=== PATIENT | female | born 1990 | race Caucasian/White ===

== ENCOUNTER 2020-11-05 16:55 | Emergency (ER) | payer SELFPAY ==
[~2020-11-05] VITALS: Ht 167.6 cm; Wt 74.3 kg
[2020-11-05 16:58] VITALS: BP 112/73
--- NOTE | 2020-11-05 17:47 | NUR ---
PT AMBULATED BACK TO ROOM WITHOUT DIFFICULTY.
--- NOTE | 2020-11-05 17:49 | NUR ---
ERP AT NOW.
[2020-11-05 17:54] LABS: BASOPHILS % (AUTO) 1 % (0-1); EOSINOPHILS % (AUTO) 1 % (1-7); LYMPHOCYTES % (AUTO) 22 % (22-44); MEAN CORPUSCULAR HEMOGLOBIN 30.5 pg (27.0-34.8); MEAN CORPUSCULAR HGB CONC 33.3 g/dL (32.4-35.8); MEAN PLATELET VOLUME 8.1 fL (7.4-10.4); MONOCYTES % (AUTO) 7 % (2-9); NEUTROPHILS % (AUTO) 70 % (42-75); PLATELET COUNT 372 x10^3/uL (130-400); RED BLOOD COUNT 4.21 x10^6/uL (3.82-5.3); RED CELL DISTRIBUTION WIDTH 13.2 % (9.6-15.2)
--- NOTE | 2020-11-05 17:57 | NUR ---
POC RV'WD WITH PT. NO S/S OF DISTRESS, DENIES NEEDS. FRIEND AT BS.
[2020-11-05 17:58] LABS: MD NO
[2020-11-05 18:02] LABS: ALBUMIN 3.5 g/dL (3.4-5.0); ANION GAP 5 mmol/L (5-15); CALCIUM 8.3 mg/dL (8.5-10.1); CHLORIDE 107 mmol/L (98-107)
[2020-11-05 18:19] LABS: MICROSCOPIC INDICATED
[2020-11-05 18:20] LABS: ALANINE AMINOTRANSFERASE 16 U/L (12-78); ALKALINE PHOSPHATASE 58 U/L (45-117); BILIRUBIN,TOTAL 0.1 mg/dL (0.2-1.0); CREATININE 0.77 mg/dL (0.55-1.02); TOTAL PROTEIN 7.5 g/dL (6.4-8.2)
--- NOTE | 2020-11-05 18:25 | NUR ---
PT TO US VIA JOEL.
[2020-11-05] MEDS ORDERED: LORazepam 2 MG/ML, 1ML ONE (18:31)
[2020-11-05] MEDS ORDERED: LABETALOL 5MG/ML, 20ML ONE (18:31)
--- NOTE | 2020-11-05 19:59 | NUR ---
PT LEFT BEFORE RECEIVING DISCHARGE PAPERS. AMBULATED OUT OF ED WITH SIGNIFICANT OTHER AND FRIEND WITHOUT DIFFICULTY.
== END 2020-11-05 20:00 | disposition home or self-care (01) ==
LOC: ED 17:05
DX: O23.41 Unspecified infection of urinary tract in pregnancy, first trimester (principal); N83.292 Other ovarian cyst, left side; Z3A.01 Less than 8 weeks gestation of pregnancy; R82.71 Bacteriuria; F17.290 Nicotine dependence, other tobacco product, uncomplicated
CPT/HCPCS: 36415; 76801; 80053; 81001; 84702; 85025; 87086; 99284

== ENCOUNTER 2020-12-12 11:40 | Emergency (ER) | payer SELFPAY ==
[~2020-12-12] VITALS: Ht 167.6 cm; Wt 76.7 kg
[2020-12-12 11:43] VITALS: BP 113/55
--- NOTE | 2020-12-12 12:12 | NUR ---
BREAK RN: PT UPRIGHT ON GURNEY AWAKE & COMFORTABLE, RESPONDS APPROP TO STAFF, NAD, NO NEEDS AT THIS TIME, SO AT BS, CALL LIGHT WITHIN REACH.
--- NOTE | 2020-12-12 12:13 | NUR ---
BREAK RN: PT TO US
[2020-12-12 12:37] LABS: BASOPHILS % (AUTO) 1 % (0-1); EOSINOPHILS % (AUTO) 0 % (1-7); LYMPHOCYTES % (AUTO) 25 % (22-44); MEAN CORPUSCULAR HEMOGLOBIN 31.5 pg (27.0-34.8); MEAN CORPUSCULAR HGB CONC 34.5 g/dL (32.4-35.8); MEAN PLATELET VOLUME 8.8 fL (7.4-10.4); MONOCYTES % (AUTO) 7 % (2-9); NEUTROPHILS % (AUTO) 67 % (42-75); PLATELET COUNT 286 x10^3/uL (130-400); RED CELL DISTRIBUTION WIDTH 13.3 % (9.6-15.2)
[2020-12-12 12:43] LABS: ALBUMIN 3.3 g/dL (3.4-5.0); ANION GAP 9 mmol/L (5-15); CHLORIDE 109 mmol/L (98-107); CREATININE 0.57 mg/dL (0.55-1.02)
[2020-12-12 13:13] LABS: MD SCAN
== END 2020-12-12 14:43 | disposition home or self-care (01) ==
LOC: ED 13:34
DX: O20.0 Threatened abortion (principal); Z3A.11 11 weeks gestation of pregnancy
CPT/HCPCS: 36415; 76801; 80048; 82040; 84702; 85025; 86901; 99284